=== PATIENT | female | born 1985 | race Caucasian/White ===

== ENCOUNTER 2017-01-18 01:52 | Emergency (ER) | payer OTHER ==
[~2017-01-18 01:52] MED LIST: ELIMITE60 G1; NO MEDICATIONS
[2017-01-18 02:41] LABS: BASOPHIL% 0.4 % (0-2.5); EOSINOPHIL# 0.2 X10e3 (0-0.7); EOSINOPHIL% 2.3 % (0.0-7.0); HEMATOCRIT 37.8 % (35.0-45.0); LYMPHOCYTE# 2.6 X10e3 (1.0-3.5); LYMPHOCYTE% 33.8 % (17.0-45.0); MEAN CELL VOLUME 91.1 FL (83-96); MEAN CORPUSCULAR HEMOGLOBIN 31.4 PG (28-34); MEAN CORPUSCULAR HGB CONC 34.4 g/dL (30-36); MEAN PLATELET VOLUME 10.4 FL (6.5-11.5); MONOCYTE# 0.6 X10e3 (0-1.0); MONOCYTE% 8.5 % (3.0-12.0); NEUTROPHIL# 4.2 X10e3 (1.5-7.1); PLATELET COUNT 144 X10e3 (140-420); RED BLOOD COUNT 4.15 X10e (3.90-5.30); RED CELL DISTRIBUTION WIDTH 12.6 % (11.0-15.5); WHITE BLOOD COUNT 7.6 X10e3 (4.0-10.5)
[2017-01-18 02:41] LABS: URINE SOURCE CLEAN CATCH
[2017-01-18 02:43] LABS: DIFF IND NO
[2017-01-18 02:44] LABS: URINE APPEARANCE CLEAR; URINE BILIRUBIN NEG (NEG); URINE BLOOD TRACE-INTACT (NEG); URINE COLOR YELLOW; URINE GLUCOSE NEG (NORM); URINE KETONE NEG (NEG); URINE LEUKOCYTE ESTERASE NEG (NEG); URINE NITRATE NEG (NEG); URINE PH 5.5 (5-8); URINE PROTEIN NEG (NEG); URINE SPECIFIC GRAVITY >=1.030 (1.003-1.035); URINE UROBILINOGEN 0.2 MG/DL (NORM)
[2017-01-18 02:45] LABS: MICRO INDICATED? YES
[2017-01-18 02:46] LABS: CULTURE INDICATED? NO; URINE BACTERIA NEG (NEG); URINE MUCUS PRESENT; URINE SQUAMOUS EPITHELIAL CELL OCCAS /[HPF]; URINE TRANSITIONAL EPI CELLS FEW /[HPF]; URINE WBC 0-2 /[HPF] (0-5)
[2017-01-18 02:54] LABS: ALBUMIN SERUM 4.5 g/dL (3.5-5.0); ALKALINE PHOSPHATASE 79 U/L (32-92); ALT (SGPT) 13 U/L (10-40); AST (SGOT) 20 U/L (10-42); BILIRUBIN, DIRECT <0.1 mg/dL (0.0-0.2); BILIRUBIN,INDIRECT 0.1 mg/dL (0.0-0.9); BILIRUBIN,TOTAL 0.2 mg/dL (0.2-2.0); BLOOD UREA NITROGEN 8 mg/dL (9-23); CALCIUM SERUM 9.3 mg/dL (8.4-10.2); CARBON DIOXIDE 24 mmol/L (22-31); CHLORIDE 106 mmol/L (100-111); CREATININE SERUM 0.8 mg/dL (0.6-1.4); GLUCOSE FASTING 102 mg/dL (70-110); LIPASE 21 U/L (22-51); POTASSIUM 3.4 mmol/L (3.5-5.1); PROTEIN TOTAL SERUM 7.7 g/dL (6.0-8.3); SODIUM 137 mmol/L (135-145)
== END 2017-01-18 03:33 | disposition home or self-care (01) ==
LOC: SED 01:52
PROVIDERS: Emergency Medicine
DX: K59.00 Constipation, unspecified (principal); F17.200 Nicotine dependence, unspecified, uncomplicated; Z88.0 Allergy status to penicillin
CPT/HCPCS: 36415; 80048; 80076; 81003; 83690; 84703; 85025; 96374; 99284; J2405

== ENCOUNTER 2017-01-25 22:01 | Emergency (ER) | payer OTHER | END 2017-01-25 22:46 | disposition home or self-care (01) | LOC: SED 22:01 | DX: S00.412A Abrasion of left ear, initial encounter (principal); F17.210 Nicotine dependence, cigarettes, uncomplicated; Z88.0 Allergy status to penicillin; X58.XXXA Exposure to other specified factors, initial encounter; Y92.9 Unspecified place or not applicable | CPT/HCPCS: 99282 ==

== ENCOUNTER 2017-02-23 15:35 | Emergency (ER) | payer OTHER ==
--- NOTE | ~2017-02-23 | CR2 ---
[facility] A Service [facility] RADIOLOGY TEXT RESULTS PATIENT: KELLY REYNOLDS LOCATION: SED : [birth year] UNIT #: [id number] AGE: [address]: Alberto Lemons MD SEX: F ORDER DR: [id number] [address] [address] [id number] E MR#: [id number] Acc #: [id number] NAME: KELLY REYNOLDS : 1985 SEX: F STUDY DATE/TIME: 02/23/2017 17:00 UNIT: SED ROOM: STUDY DESCRIPTION: CR Abdomen Acute Series Attending Physician: Alberto Lemons M.D. Ordering Physician: Alberto Lemons M.D. MEDICAL IMAGING REPORT This report is preliminary unless electronic signature is present. EXAM Acute abdomen series HISTORY Abdominal pain toward the right side beginning 5 days ago. TECHNIQUE A single view of the chest was obtained as well as flat upright views the abdomen. FINDINGS Single frontal view of the chest taken at the time of the abdominal examination is within normal limits. AP, supine, and upright examination of the abdomen shows a normal gas and fecal pattern distribution throughout large and small bowel without distended loops in either area. There is no indication of extraluminal air, unusual visceromegaly, or soft tissue density mass. The renal definitions are fairly well demarcated and normal in shape and size. No abnormal intra-abdominal calcifications are present. IMPRESSION Normal acute abdomen series. Dictated by... Mikie Bell M.D. THIS IS AN ELECTRONICALLY VERIFIED REPORT Mikie Bell M.D. at 03/01/2017 7:10 AM RLF/pcl [facility] A Service [facility] RADIOLOGY TEXT RESULTS PATIENT: KELLY REYNOLDS LOCATION: SED : [birth year] UNIT #: [id number] AGE: [address]: Alberto Lemons MD SEX: F ORDER DR: TD: 02/23/2017 23:08 JOB #: [id number] MEDICAL IMAGING REPORT Page 1 of 1
--- NOTE | ~2017-02-23 | US67 ---
[facility] A Service [facility] RADIOLOGY TEXT RESULTS PATIENT: KELLY REYNOLDS LOCATION: SED : [birth year] UNIT #: [id number] AGE: [address]: Alberto Lemons MD SEX: F ORDER DR: [id number] [address] [address] [id number] E MR#: [id number] Acc #: [id number] NAME: KELLY REYNOLDS : 1985 SEX: F STUDY DATE/TIME: 02/23/2017 18:05 UNIT: SED ROOM: STUDY DESCRIPTION: Gallbladder Attending Physician: Alberto Lemons M.D. Ordering Physician: Physician Non-Staff Primary Care Physician: Primary Care Physician No MEDICAL IMAGING REPORT This report is preliminary unless electronic signature is present. EXAM Gallbladder sonogram CLINICAL HISTORY Right flank and right lower quadrant pain for several days. FINDINGS Real-time examination demonstrates the gallbladder to be contracted. No definite cholelithiasis and no pericholecystic fluid. Common bile duct measures 3.3 mm. Visualized portion of the liver, pancreas and right kidney appear normal. No free fluid. IMPRESSION Technically limited study as the patient's gallbladder was contracted as the patient had eaten prior to arriving in the emergency room. No definitive gallstones or pericholecystic fluid or findings to suggest acute cholecystitis. No acute abnormality of the right upper quadrant identified. Dictated by... Courtney Arechiga M.D. THIS IS AN ELECTRONICALLY VERIFIED REPORT Courtney Arechiga M.D. at 02/24/2017 10:06 AM KYLE/solange TD: 02/24/2017 00:15 JOB #: [id number] MEDICAL IMAGING REPORT [facility] RADIOLOGY TEXT RESULTS PATIENT: KELLY REYNOLDS LOCATION: SED : [birth year] UNIT #: [id number] AGE: [address]: Alberto Lemons MD SEX: F ORDER DR: Page 1 of 1
[2017-02-23 16:17] LABS: BASOPHIL% 0.5 % (0-2.5); EOSINOPHIL# 0.2 X10e3 (0-0.7); EOSINOPHIL% 3.4 % (0.0-7.0); HEMATOCRIT 36.7 % (35.0-45.0); HEMOGLOBIN 12.6 gm/dL (12.0-16.0); LYMPHOCYTE# 1.8 X10e3 (1.0-3.5); LYMPHOCYTE% 28.6 % (17.0-45.0); MEAN CELL VOLUME 91.8 FL (83-96); MEAN CORPUSCULAR HEMOGLOBIN 31.5 PG (28-34); MEAN CORPUSCULAR HGB CONC 34.3 g/dL (30-36); MEAN PLATELET VOLUME 10.5 FL (6.5-11.5); MONOCYTE# 0.3 X10e3 (0-1.0); MONOCYTE% 4.2 % (3.0-12.0); NEUTROPHIL% 63.3 % (40-75); PLATELET COUNT 175 X10e3 (140-420); RED CELL DISTRIBUTION WIDTH 12.5 % (11.0-15.5); WHITE BLOOD COUNT 6.3 X10e3 (4.0-10.5)
[2017-02-23 16:19] LABS: DIFF IND NO
[2017-02-23 16:24] LABS: URINE SOURCE CLEAN CATCH
[2017-02-23 16:27] LABS: URINE APPEARANCE CLEAR; URINE BILIRUBIN NEG (NEG); URINE BLOOD TRACE-INTACT (NEG); URINE COLOR YELLOW; URINE GLUCOSE NEG (NORM); URINE KETONE NEG (NEG); URINE LEUKOCYTE ESTERASE NEG (NEG); URINE NITRATE POS (NEG); URINE PH 5.5 (5-8); URINE PROTEIN NEG (NEG); URINE SPECIFIC GRAVITY <=1.005 (1.003-1.035); URINE UROBILINOGEN 0.2 MG/DL (NORM)
[2017-02-23 16:35] LABS: ALBUMIN SERUM 4.6 g/dL (3.5-5.0); BILIRUBIN,TOTAL 0.4 mg/dL (0.2-2.0); BUN/CREATININE RATIO 8.57; CREATININE SERUM 0.7 mg/dL (0.6-1.4); GLOM FILT RATE Estimated 115.5 mL/min (>60); POTASSIUM 3.7 mmol/L (3.5-5.1); PROTEIN TOTAL SERUM 7.5 g/dL (6.0-8.3)
[2017-02-23 16:41] LABS: MICRO INDICATED? YES
[2017-02-23 16:47] LABS: URINE RBC 0-2 /[HPF] (0-2); URINE SQUAMOUS EPITHELIAL CELL MANY /[HPF]
[2017-02-23 16:48] LABS: CULTURE INDICATED? YES; URINE BACTERIA NEG (NEG)
== END 2017-02-23 18:44 | disposition home or self-care (01) ==
LOC: SED 15:35
PROVIDERS: Physician Assistant
DX: R10.11 Right upper quadrant pain (principal); R10.31 Right lower quadrant pain; Z88.0 Allergy status to penicillin; Z98.890 Other specified postprocedural states
CPT/HCPCS: 36415; 74022; 76705; 80053; 81003; 83690; 84703; 85025; 87086; 96374; 96375; 99284; J1885; J2405